=== PATIENT | female | born 1940 | race Caucasian/White ===

== ENCOUNTER 2018-03-13 21:44 | Emergency (ER) | payer MEDICARE, OTHER ==
--- NOTE | 2018-03-13 22:14 | EDM.PDOC ---
ED HPI GENERAL MEDICAL PROBLEM - General Stated Complaint: CHEST PAINS Time Seen by Provider: 03/13/18 21:50 - History of Present Illness INITIAL COMMENTS - FREE TEXT/NARRATIVE: HISTORY AND PHYSICAL: History of present illness: Patient 78-year-old female who presents status post cardiac arrest in which she had a reported downtime approximately 3 minutes she arrested en route via paramedics were initially called for dizziness and shortness of breath patient' s daughter has arrived subsequently and has declared the patient DNR upon arrival patient was intubated by myself with 7.5 ET tube was good breath sounds bilaterally status post and chest x-ray confirmed ET tube in good position central line was placed also by myself in the right femoral vein ACLS was initiated patient did respond intermittently and has had recurrent episodes of bradycardia and hypotension she subsequently had a bradycardic arrest Auster pressure daughter declared DNR again at this point and did not want any further resuscitative measures. Review of systems: As per history of present illness and below otherwise all systems reviewed and negative. Past medical history: As per history of present illness and as reviewed below otherwise noncontributory. Surgical history: As per history of present illness and as reviewed below otherwise noncontributory. Social history: No reported history of drug or alcohol abuse. Family history: As per history of present illness and as reviewed below otherwise noncontributory. Physical exam: HEENT is atraumatic lungs her breath sounds with bag valve mask bilaterally heart exam is S1-S2 abdomen is soft nondistended pelvis is stable extremities are benign neurologic patient's unresponsive Diagnostics: Cardiac workup chest x-ray ABG Therapeutics: ACLS central line intubation please see nursing notes for details Impression: Cardiopulmonary arrest Definitive disposition and diagnosis as appropriate pending reevaluation and review of above. - Related Data Allergies Allergy/AdvReac Type Severity Reaction Status Date / Time No Known Allergies Allergy Verified 07/14/15 15:55 Home Meds: Home Meds Ascorbic Acid/Bioflavonoids [Vit C-Bioflavonoids ] 500 mg PO DAILY 09/14/15 [ History] Aspirin [Adult Low Dose Aspirin EC] 1 tab PO DAILY 09/14/15 [History] Black Cohosh 1 cap PO DAILY 09/14/15 [History] Calcium Carbonate [Calcium] 1 tab PO DAILY 09/14/15 [History] Cinnamon Bark [Cinnamon] 1 tab PO DAILY 09/14/15 [History] Losartan/Hydrochlorothiazide [Losartan-HCTZ 50-12.5 MG] 1 tab PO DAILY 09/14/15 [History] [place]-3/DHA/Epa/Fish Oil [[place] 3 500 Softgel] 1 cap PO DAILY 09/14/15 [History] Omeprazole 1 cap PO DAILY PRN 09/14/15 [History] Vit D3 & K/Berberine HCl/Hops [Ostera] 1 cap PO DAILY 09/14/15 [History] amLODIPine Besylate [Amlodipine Besylate] 1 tab PO DAILY 09/14/15 [History] Past Medical History HEENT History: Reports: Impaired Vision Other HEENT History: wears glasses Gastrointestinal History: Reports: GERD DIRECTOR OF FOOD AND NUTRITION History: Reports: Endocrine/Metabolic History: Reports: Obesity/BMI 30+ - Past Surgical History HEENT Surgical History: Reports: Cataract Surgery, Other (See Below) ED ROS GENERAL - Review of Systems Review Of Systems: ROS reveals no pertinent complaints other than HPI. ED EXAM, GENERAL - Physical Exam Exam: See Below (see dictation) Course - Orders/Labs/Meds Orders: Active Orders 24 hr Category Date Time Status Chest 1V Frontal [CR] Routine Exams 03/13/18 Taken Meds: Medications Discontinued Medications Generic Name Dose Route Start Last Admin Trade Name Cici PRN Reason Stop Dose Admin Propofol Confirm 03/13/18 21:53 Diprivan 100 Ml Administered 03/13/18 21:54 Dose 100 mls @ as directed .ROUTE .STK-MED ONE Norepinephrine Bitartrate Confirm 03/13/18 21:59 Norepinephr-0.9% Nacl 4 Mg/250 Administered 03/13/18 22:00 Dose 4 mg in 250 mls @ as directed IV .STK-MED ONE Departure - Departure Time of Disposition: 22:13 Disposition: 20 Clinical Impression: Cardiopulmonary arrest - Discharge Information - My Orders Last 24 Hours: My Active Orders 03/13/18 Chest 1V Frontal [CR] Routine - Assessment/Plan Last 24 Hours: My Active Orders 03/13/18 Chest 1V Frontal [CR] Routine
[2018-03-14] MEDS ORDERED: EPINEPHrine 1 MG/1 ML Amp IVPUSH ONE ×2 (01:55→02:07)
[2018-03-14] MEDS ORDERED: Succinylcholine 200 MG/10 ML MDV IV STA (01:55)
[2018-03-14] MEDS ORDERED: Rocuronium 50 MG/5 ML Vial IVPUSH ONE (01:55)
[2018-03-14] MEDS ORDERED: Sodium Bicarbonate 8.4% 50 MEQ/50 ML Syringe IVPUSH ONE (01:55)
[2018-03-14] MEDS ORDERED: Atropine 0.1 MG/ML 10 ML Syringe IVPUSH ONE (01:55)
--- NOTE | 2018-03-14 07:17 | PCM.SN ---
- Free Text/Narrative Note: Called for Code Blue in ER. Arrived-Et inplace, CPR in progress. BS=BS. Tube taped inplace. Remained available on standby. 21:40-22:10. Pt. .
--- NOTE | 2018-03-14 09:24 | CR ---
EXAM DATE: 03/13/18 PATIENT'S AGE: 78 Patient: EBENEZER TOMAS Facility: [place], [place] Site Patient ID: [id number]. Site : 1940 Study: XRay Chest [id number]/14/2018 9:59:31 PM Ordering Physician: sterling Ralph Final Report: INDICATION: Post intubation, code blue TECHNIQUE: Chest 1 view. 9:47 a.m. COMPARISON: None FINDINGS: Cardiovascular and mediastinum: Dextro cardia. Confirmation of correct markers confirmed with technologist. Mediastinum is within normal limits. Lungs and pleural space: Lungs are clear. No sign of infiltrate or mass. No sign of pleural effusion. No pneumothorax. Bones and soft tissues: No significant findings. Lines and tubes: ET tube in place with the tip within 1.0 centimeter of the renay. Orogastric tube tip terminates in the right upper quadrant. Given that patient has dextrocardia, situs inversus should be considered. IMPRESSION: No acute pulmonary or cardiac abnormalities. ET tube in place the tip within 1.0 centimeter of the renay. Dextrocardia. Orogastric tube tip terminates in the right upper quadrant. 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 Dictated by Delfin Poole MD @ 03/13/2018 10:30:38 PM Dictated by: Delfin Poole MD @ 03/13/2018 22:31:08 (Electronic Signature) Report Signed by Proxy. CONNIE
== END 2018-03-14 00:05 | disposition expired ==
LOC: MW.ED 21:44
DX: I46.9 Cardiac arrest, cause unspecified (principal); E66.9 Obesity, unspecified; Z79.82 Long term (current) use of aspirin; Z79.899 Other long term (current) drug therapy
CPT/HCPCS: 43753; 71045; 92950; 93005; 96374; 96375; 99291; J0171; J0330; J0461; 99283